=== PATIENT | female | born 1945 | race Caucasian/White ===

== ENCOUNTER → 2019-05-17 | Outpatient (CLI) | payer OTHER, BC ==
[~2019-05-17] MED LIST: ATENOLOL 100MG100 MG PO; BENAZEPRIL HCL20 MG PO; BUPROPION XL300 MG PO; CARNITINE250 MG PO; CITRACAL + BON1 EACH PO; COLACE100 MG PO; DILTIAZEM ER240 M1 PO; IBUPROFEN 200200 M1 PO; IBUPROFEN 800800 M1 PO; LEVOTHYROXIN0.125 M1 PO; MOM PO; OSTEO BI-FLEX1 EAC1 PO; PREMARIN1.25 MG PO; QVAR8.7 G1 INH; VENTOLIN HFA 1818 GM INH
== END ==
LOC: RAD 13:05
DX: Z12.31 Encounter for screening mammogram for malignant neoplasm of breast (principal)

== ENCOUNTER → 2019-06-08 | Outpatient (CLI) | payer OTHER, BC | LOC: RAD 14:13 | DX: R92.1 Mammographic calcification found on diagnostic imaging of breast (principal) ==

== ENCOUNTER → 2019-06-27 | Outpatient (CLI) | payer OTHER, BC ==
--- NOTE | 2019-06-28 15:07 | PATH ---
[facility] [address] [place] [address] PATHOLOGY RPT PROCEDURE Name: MARGARET XIONG Room #: REG Ben MKaren.#: [id number] Admission: 06/27/19 Date of : 41 Discharge: Report #: [id number] Path Case #: [id number] [facility] Accession Number: [id number] . 01 Material submitted: . breast - RIGHT BREAST CALCS CENTRAL SUPERIOR. Modifiers: right . 01 Clinical history: . Right breast calcifications . 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 - Breast tissue with proliferative fibrocystic changes including columnar cell hyperplasia, focal apocrine metaplasia as well as stromal fibrosis. (IUV:pit; 06/28/2019) QTP 06/28/2019 1223 Local . 02 Comment: Dr. Elvia Collins has seen a financial service representative slide (A1-13 level) and concurs with the diagnosis rendered. (IUV:pit; 06/28/2019) . 02 Electronically signed: . Haylie Martino MD, Pathologist NPI- [id number] . 01 Gross description: . Received in formalin labeled "Margaret Xiong, right," and additionally labeled on the requisition as "breast calcifications, central superior," are multiple needle cores of yellow-ayala fibrofatty tissue measuring 2.6 x 2.9 x 0.4 cm in aggregate dimensions. Additionally received in the container is a white plastic cassette containing multiple needle cores of yellow-ayala fibrofatty tissue measuring approximately 2.5 x 1.3 x 0.6 cm in aggregate dimensions. The tissue in the cassette is transferred to cassette A1 and the remaining tissue is submitted in its entirety in cassettes A2 through A4. The cold ischemic time is 4 minutes. The total formalin fixation time is greater than 6 hours and less than 72 hours. (TSD; 06/27/2019) TOB/TOB 06/27/2019 1949 Local . 02 Pathologist provided ICD-10: N60.11, N60.31, N60.81 . 02 [place] [address] PATHOLOGY RPT PROCEDURE Name: MARGARET XIONG Room #: REG CLI Sabino#: [id number] Admission: 06/27/19 Date of : 41 Discharge: Report #: [id number] Path Case #: [id number] Specimen Comment: A courtesy copy of this report has been sent to Specimen Comment: [phone], . Specimen Comment: Report sent to / DR HINTON Performed at: [address] [facility], [place] [id number] MD Valentino Kelly MD Phone: [phone] Performed at: [address] [id number] MD Haylie Martino MD Phone: [phone]
== END ==
LOC: RADSTEREO 06-12 10:52
DX: R92.1 Mammographic calcification found on diagnostic imaging of breast (principal); N60.81 Other benign mammary dysplasias of right breast; N60.31 Fibrosclerosis of right breast; N62 Hypertrophy of breast; Z88.0 Allergy status to penicillin; Z79.899 Other long term (current) drug therapy; Z98.890 Other specified postprocedural states